=== PATIENT | female | born 1980 | race Two or more races ===

== ENCOUNTER 2024-02-23 06:36 | Outpatient (CLI) | payer OTHER ==
[~2024-02-23 06:36] MED LIST: COZAAR50 MG PO; LOSARTAN POTASS50 MG PO
[2024-02-23 07:29] LABS: URINE APPEARANCE Clear; URINE BILIRRUBIN Negative (NEGATIVE); URINE BLOOD Negative; URINE COLOR Yellow; URINE GLUCOSE Negative (NEGATIVE); URINE LEUKOCYTE Small; URINE NITRATE Negative; URINE PROTEIN Negative (NEGATIVE); URINE UROBILINOGEN 0.2 E.U./dl
[2024-02-23 07:33] LABS: URINE BACTERIA 331.2 uL (0.0-1933)
[2024-02-23 07:39] LABS: HEMATOCRIT 38.5 % (36.0-45.00); HEMOGLOBIN 13.4 g/dL (12.0-15.00); MEAN CELL VOLUME 87.3 fL (80.00-100.00); MEAN CORPUSCULAR HEMOGLOBIN 30.3 pg (27.00-32.0); MEAN CORPUSCULAR HGB CONC 34.7 g/dl (32.0-36.0); PLATELET COUNT 241 K/uL (150-450); RED BLOOD COUNT 4.41 M/uL (4.00-6.00); RED CELL DISTRIBUTION WIDTH 12.7 % (11.5-14.5)
[2024-02-23 08:09] LABS: ALBUMIN 3.5 gm/dL (3.4-5.0); BILIRUBIN TOTAL 0.37 mg/dL (0.3-1.2); CALCIUM 8.9 mg/dL (8.5-10.1); CHOL HDL RATIO 2.9 (0-5.0); CREATININE SERUM 0.71 mg/dL (0.55-1.02); GFR 90.72; GLOBULINA 3.2 G/DL (2.4-3.5); POTASSIUM 4.33 mEq/L (3.5-5.1); TOTAL PROTEIN 6.7 gm/dL (6.4-8.2); TSH 2.77 uIU/mL (0.358-3.74)
[2024-02-23 08:17] LABS: URINE RBC 1.7 uL (0.0-20.8)
== END 2024-02-23 06:37 | disposition home or self-care (01) ==
LOC: LAB 06:36
PROVIDERS: ATTEND Obstetrics & Gynecology
DX: R30.0 Dysuria (principal); N94.9 Unspecified condition associated with female genital organs and menstrual cycle; E03.9 Hypothyroidism, unspecified

== ENCOUNTER 2025-07-11 06:31 | Outpatient (CLI) | payer OTHER ==
[2025-07-11 07:40] LABS: BASO % 0.4 % (0.1-1.2); EOS # 0.08 (0.04-0.54); EOS % 1.6 % (0.7-7.0); LYMPH # 1.91 (1.18-3.74); LYMPH % 39.1 % (19.3-53.1); MEAN PLATELET VOLUME 10.30 fl (9.4-12.4); MONO # 0.34 (0.24-0.82); MONO % 7.0 % (4.7-12.5); NEUT # 2.52 (1.56-6.13); NEUT % 51.7 % (34.0-71.1); RED CELL DISTRIBUTION WIDTH 11.6 % (11.6-14.4)
[2025-07-11 07:49] LABS: URINE APPEARANCE Clear; URINE BILIRRUBIN Negative (NEGATIVE); URINE BLOOD Large; URINE COLOR Yellow; URINE GLUCOSE Negative (NEGATIVE); URINE LEUKOCYTE Small; URINE NITRATE Negative; URINE PROTEIN Negative (NEGATIVE); URINE UROBILINOGEN 0.2 E.U./dl
[2025-07-11 07:50] LABS: URINE BACTERIA 1391.9 uL (0.0-1933); URINE EPITHELIAL CELLS 40.4 uL (0.0-38.8); URINE RBC 6.3 uL (0.0-20.8); URINE WBC 71.9 uL (0.0-23.2)
[2025-07-11 08:04] LABS: URINE CAST 0.29 uL (0.0-1.40); URINE KETONE 40 (NEGATIVE)
[2025-07-11 08:38] LABS: ALT/SGPT 25.0 U/L (12-78); AST/SGOT 18.0 U/L (15-37); BILIRUBIN TOTAL 0.51 mg/dL (0.3-1.2); BUN CREA RATIO 9.0 (7.0-25.0); CHOL HDL RATIO 3.2 (0-5.0); CREATININE SERUM 0.77 mg/dL (0.55-1.02); GFR 81.82; GLOBULINA 3.0 G/DL (2.4-3.5); GLUCOSE FASTING 79.0 mg/dL (65-100); HDL 42.0 mg/dl (40-60); LDL 81.0 mg/dl (0-130); OSMOLALITY SERUM 278.0 MOSM/KG (275-295); TSH 2.09 uIU/mL (0.358-3.74); VLDL 11.0 (0-39)
== END 2025-07-11 06:42 | disposition home or self-care (01) ==
LOC: LAB 06:31
DX: I11.9 Hypertensive heart disease without heart failure (principal); E55.9 Vitamin D deficiency, unspecified; Z12.11 Encounter for screening for malignant neoplasm of colon; R30.0 Dysuria; E06.9 Thyroiditis, unspecified; E16.2 Hypoglycemia, unspecified; E78.2 Mixed hyperlipidemia; K62.5 Hemorrhage of anus and rectum; N92.5 Other specified irregular menstruation

== ENCOUNTER 2025-07-12 13:20 | Outpatient (CLI) | payer OTHER ==
[2025-07-12 13:59] LABS: ob NEGATIVE (NEGATIVE)
== END 2025-07-12 13:32 | disposition home or self-care (01) ==
LOC: LAB 13:20
DX: E55.9 Vitamin D deficiency, unspecified (principal); I11.9 Hypertensive heart disease without heart failure; Z12.11 Encounter for screening for malignant neoplasm of colon; R30.0 Dysuria; E06.9 Thyroiditis, unspecified; E16.2 Hypoglycemia, unspecified; E78.2 Mixed hyperlipidemia; K62.5 Hemorrhage of anus and rectum; N92.5 Other specified irregular menstruation